=== PATIENT | male | born 1980 | race Two or more races ===

== ENCOUNTER 2020-10-23 17:23 | Emergency (ER) | payer OTHER ==
[~2020-10-23] VITALS: Ht 175.3 cm; Wt 95.3 kg
[~2020-10-23 17:23] MED LIST: BENTYL; CALCITRIOL0.5 MCG PO; CALTRATE-600/VI1 TAB PO; FLOVENT 110MCG7.9 GM IH; IBUPROFEN800 MG PO; INTESTINEX1 CA1; LEVSIN/SL0.125 MG PO; PANADOL EXTRA500 MG; PEPCID20 MG PO; PROVENTIL3 ML/2.5 M IH; ZITHROMAX500 MG PO; ZYNCOF 20-400120 ML PO; [UNRECOGNIZED DRUG - OTHER]
[2020-10-23] MEDS ORDERED: ZITHROMAX500 MG PO (21:58)
== END 2020-10-23 22:35 | disposition home or self-care (01) ==
LOC: ER 17:23
DX: R53.81 Other malaise (principal); B34.9 Viral infection, unspecified; J11.1 Influenza due to unidentified influenza virus with other respiratory manifestations; B96.0 Mycoplasma pneumoniae [M. pneumoniae] as the cause of diseases classified elsewhere; Z11.52 Encounter for screening for COVID-19

== ENCOUNTER 2020-11-04 13:43 | Emergency (ER) | payer OTHER ==
[~2020-11-04] VITALS: Ht 172.7 cm; Wt 95.3 kg
[2020-11-04] MEDS ORDERED: TUSNEL LIQUID178 ML PO (17:31)
[2020-11-04] MEDS ORDERED: DUI500 PO (17:31)
[2020-11-04] MEDS ORDERED: DOLOGEN CAPLET1 EACH PO (17:31)
== END 2020-11-04 18:29 | disposition home or self-care (01) ==
LOC: ER 13:43
DX: R05 Cough (principal); J35.01 Chronic tonsillitis; Z11.52 Encounter for screening for COVID-19

== ENCOUNTER 2021-02-24 14:32 | Emergency (ER) | payer OTHER ==
[~2021-02-24] VITALS: Ht 154.9 cm; Wt 61.2 kg
[~2021-02-24 14:32] MED LIST changes: +DOLOGEN CAPLET1 EACH PO; +DUI500 PO; +TUSNEL LIQUID178 ML PO
[2021-02-24] MEDS ORDERED: HYDRODIURIL12.5 MG PO (19:01)
== END 2021-02-24 19:39 | disposition home or self-care (01) ==
LOC: ER 14:32
DX: I16.0 Hypertensive urgency (principal); I10 Essential (primary) hypertension; R07.89 Other chest pain

== ENCOUNTER 2021-03-10 17:11 | Outpatient (CLI) | payer OTHER ==
[~2021-03-10 17:11] MED LIST changes: +HYDRODIURIL12.5 MG PO
== END 2021-03-10 17:16 | disposition home or self-care (01) ==
LOC: LAB 17:11
PROVIDERS: ATTEND Obstetrics & Gynecology
DX: Z20.818 Contact with and (suspected) exposure to other bacterial communicable diseases (principal); Z20.828 Contact with and (suspected) exposure to other viral communicable diseases

== ENCOUNTER 2021-12-04 10:02 | Emergency (ER) | payer OTHER ==
[~2021-12-04] VITALS: Ht 172.7 cm; Wt 99.8 kg
== END 2021-12-04 17:38 | disposition home or self-care (01) ==
LOC: ER 10:02
DX: U07.1 COVID-19 (principal); J98.01 Acute bronchospasm

== ENCOUNTER 2021-12-08 09:15 | Outpatient (CLI) | payer OTHER | END 2021-12-08 09:50 | disposition home or self-care (01) | LOC: ASH CLINIC 09:15 | PROVIDERS: ATTEND General Practice | DX: U07.1 COVID-19 (principal) ==

== ENCOUNTER 2022-12-18 10:35 | Emergency (ER) | payer OTHER ==
[~2022-12-18] VITALS: Ht 172.7 cm; Wt 113.4 kg
== END 2022-12-18 18:05 | disposition home or self-care (01) ==
LOC: ER 10:35
DX: B34.8 Other viral infections of unspecified site (principal); Z20.822 Contact with and (suspected) exposure to COVID-19